=== PATIENT | male | born 1990 | race Caucasian/White ===

== ENCOUNTER 2023-08-29 13:10 | Emergency (ER) | payer OTHER, SELFPAY ==
[2023-08-29 13:38] VITALS: BP 189/111; PULSE 104; RESP 18; TEMP 36.8; O2SAT 97; BMI 35.5
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
[2023-08-29] MEDS: ketorolac 60 mg/2 mL INJ 30 MG IVP (16:45)
[2023-08-29] MEDS: dexamethasone 10 mg/mL INJ IV (16:46)
[2023-08-29] MEDS: orphenadrine 30 mg/mL Inj 2 mL 60 MG IVP (16:48)
[2023-08-29] MEDS: famotidine 20 mg Tablet 40 MG PO (16:52)
[2023-08-29 18:22] VITALS: BP 171/116; PULSE 86; O2SAT 95
== END 2023-08-29 18:23 | disposition home or self-care (01) ==
PROVIDERS: Emergency Provider Physician Assistant
DX: S39.012A Strain of muscle, fascia and tendon of lower back, initial encounter (principal); V48.5XXA Car driver injured in noncollision transport accident in traffic accident, initial encounter
CPT/HCPCS: 72100; 96374; 96375; 99284; J1100; J1885; J2360

== ENCOUNTER 2024-02-04 08:00 | Emergency (ER) | payer OTHER, SELFPAY ==
[2024-02-04 08:09] VITALS: BP 151/105; PULSE 94; RESP 14; TEMP 36.4; O2SAT 98
--- NOTE | 2024-02-04 08:18 | ED_ITS ---
HPI - Dental/Oral General: Chief complaint: Dental/Oral Stated complaint: tooth/gum pain, broken tooth Time Seen by Provider: 02/04/24 08:10 History of Present Illness: 33-year-old male presents with dental pa in. Patient has a broken tooth on the left lower side that has been broke for a while. He had an appointment with the dentist but somehow there was a mixup and he was able to get in. He reports now that he has had some increased pain and now a small white area underneath the tooth that is forming. Associated symptoms: Denies fever(s) Review of Systems Const: Denies: fever(s) or chills ENMT: Reports: dental pain Resp: Denies: dyspnea or productive cough GI: Denies: abdominal pain, nausea or vomiting : Denies: flank pain or difficulty urinating Physical Exam Const: COMMON NORMALS: no acute distress, patient oriented x3, no limitations and alert HENMT: TEETH & GINGIVA: Yes caries OTHER: Fractured tooth with associated early abscess tooth #21 Resp: COMMON NORMALS: normal respiratory effort, No use of accessory muscles and clear to auscultation bilaterally AUSCULTATION: clear to auscultation bilaterally Cardio: COMMON NORMALS: regular rate and regular rhythm RATE: regular rate RHYTHM: regular rhythm Neuro: COMMON NORMALS: patient oriented x3, no focal motor deficits and no sensory deficits noted SENSORIUM/ORIENTATION: Yes alert Psych: COMMON NORMALS: mental status grossly normal, cooperative and normal affect Course Vital Signs: Vital signs: Vital Signs Temperature 97.6 F 02/04/24 08:09 Pulse Rate 83 02/04/24 08:38 Respiratory Rate 14 02/04/24 08:09 Blood Pressure 151/105 02/04/24 08:38 Pulse Oximetry 95 02/04/24 08:38 Oxygen Delivery Me thod Room Air 02/04/24 08:09 MDM - Dental/Oral Medical Decision Making Patient with early dental abscess and dental infection but no obvious drainable abscess at this time. I will start him on amoxicillin. Recommend that he use liquid gel, puncture gel In place gel directly on painful tooth. He also can use a temporary filling that is available at local pharmacies along with lidocaine gel, Tylenol. He should follow-up with a dentist as soon as possible. No radiology studies performed this visit Discharge Plan Discharge Patient Disposition: Home Clinical Impression: Dental abscess, Fracture of tooth Condition: Stable Prescriptions: New amoxicillin 500 mg capsule 500 mg PO BID 10 Days Qty: 20 0RF tramadol 50 mg tablet 50 mg PO Q8H PRN (Reason: pain) Qty: 10 0RF No Action Medrol (Kar) 4 mg tablets,dose pack See Rx Instructions .ROUTE .COMPLEX Qty: 21 0RF Rx Instructions: orally per package directions naproxen 500 mg tablet 500 mg PO BID PRN (Reason: pain) Qty: 20 0RF Voltaren Arthritis Pain 1 % gel 4 g topical QID Qty: 100 0RF Rx Instructions: apply to back Discharge Orders: Discharge ED (Routine); Ordered 02/04/24 Ordered By: Carloz Harrington Referrals: Sobia Mendez FNP [Primary Care Provider] - Discharge Diet: Advance as tolerated Discharge Activity: Resume usual activity Patient Instructions: Opioid Safety, Pain Management Activity Restrictions/Additional Instructions: Please follow-up with a dentist as soon as possible. Coding Level of Care Code ED Classroom Monitor for Jan Mckenna
[2024-02-04 08:38] VITALS: BP 151/105; PULSE 83; O2SAT 95
== END 2024-02-04 08:39 | disposition home or self-care (01) ==
PROVIDERS: Emergency Provider Student in an Organized Health Care Education/Training Program; PCP Nurse Practitioner
DX: K04.7 Periapical abscess without sinus (principal); S02.5XXA Fracture of tooth (traumatic), initial encounter for closed fracture; X58.XXXA Exposure to other specified factors, initial encounter
CPT/HCPCS: 99283

== ENCOUNTER → 2024-03-26 10:29 | Outpatient (BNVA) | payer OTHER, SELFPAY | PROVIDERS: PCP Nurse Practitioner; Referring Provider Nurse Practitioner; Visit Provider Internal Medicine | DX: E29.1 Testicular hypofunction (principal); E11.9 Type 2 diabetes mellitus without complications; Z12.5 Encounter for screening for malignant neoplasm of prostate; R79.89 Other specified abnormal findings of blood chemistry; R68.82 Decreased libido; N52.9 Male erectile dysfunction, unspecified; Z79.890 Hormone replacement therapy | CPT/HCPCS: 99204 ==